=== PATIENT | female | born 1965 | race Two or more races ===

== ENCOUNTER 2020-09-02 13:47 | Emergency (ER) | payer OTHER ==
[~2020-09-02] VITALS: Ht 177.8 cm; Wt 73.5 kg
[2020-09-02] MEDS ORDERED: IBUPROFEN 800 MG TAB PO ONE (15:00)
[2020-09-02 15:06] VITALS: BP 150/89
== END 2020-09-02 16:37 | disposition home or self-care (01) ==
LOC: ER 13:47
DX: S39.012A Strain of muscle, fascia and tendon of lower back, initial encounter (principal); S16.1XXA Strain of muscle, fascia and tendon at neck level, initial encounter; S40.022A Contusion of left upper arm, initial encounter; W18.39XA Other fall on same level, initial encounter; Y93.89 Activity, other specified; Y92.89 Other specified places as the place of occurrence of the external cause; Y99.8 Other external cause status
CPT/HCPCS: 72040; 72100; 73060